=== PATIENT | female | born 1940 | race Caucasian/White ===

== ENCOUNTER 2017-10-30 11:25 | Outpatient (CLI) | payer MEDICARE, BC ==
[2017-10-30 12:08] LABS: Hemoglobin 12.9 g/dL (12.0-16.0); Mean Corpuscular HGB CONC 33.7 g/dL (32.0-36.0); Platelet Count 209 thou/uL (130-400); RBC Distribution Width 13.4 % (11.5-14.5); Red Blood Cell (RBC) Count 4.46 mill/uL (4.20-5.40); White Blood Cell (WBC) Count 5.4 thou/uL (4.8-10.8)
[2017-10-30 12:19] LABS: PTT 27.7 SEC (22.9-36.1); Prothrombin Time 12.9 SEC (12.0-14.7)
[2017-10-30 12:37] LABS: Anion Gap 11 mmol/L (10-20); BUN (Urea Nitrogen) 23 mg/dL (9.8-20.1); Calc. Creatinine Clearance 0 mL/min (70-130); Calcium 9.2 mg/dL (7.8-10.44); Carbon Dioxide 30 mmol/L (23-31); Chloride 101 mmol/L (98-107); Estimated GFR-MDRD 70; Glucose 106 mg/dL (83-110); Potassium 3.8 mmol/L (3.5-5.1); Sodium 138 mmol/L (136-145)
== END 2017-10-30 11:26 | disposition home or self-care (01) ==
LOC: LABBT 11:25
PROVIDERS: ATTEND Surgery
DX: Z01.818 Encounter for other preprocedural examination (principal); M48.02 Spinal stenosis, cervical region; M54.12 Radiculopathy, cervical region
CPT/HCPCS: 80048; 85027; 85610; 85730; 93005; 93010

== ENCOUNTER 2017-11-06 05:36 | Inpatient (IN) | payer MEDICARE, BC ==
[2017-11-06] MEDS ORDERED: Thrombin 5000 UNITS/5 ML VIAL ONE (06:26)
[2017-11-06] MEDS ORDERED: Sodium Chloride 0.9% 10 ML ONE (06:26)
[2017-11-06] MEDS ORDERED: CEFAZOLIN/Water 2 GM/20 ML SYRINGE ONE (07:11)
[2017-11-06] MEDS ORDERED: Albuterol Sulfate HFA (OR ONLY) ONE ×2 (07:15→09:20)
[2017-11-06] MEDS ORDERED: Phenylephrine HCL 10 MG/ML VIAL ONE (07:15)
[2017-11-06] MEDS ORDERED: Fentanyl 100 MCG/2 ML VIAL ONE ×3 (07:28→10:13)
[2017-11-06] MEDS ORDERED: Promethazine HCl 25 MG/ML VIAL IM PRN (09:38)
[2017-11-06] MEDS ORDERED: Promethazine HCl 25 MG/ML VIAL SLOW IVP PRN (09:38)
[2017-11-06] MEDS ORDERED: Ondansetron HCl/PF 4 MG/2 ML Vial IVP PRN (09:38)
[2017-11-06] MEDS ORDERED: HYDROmorphone 2 MG/ML VIAL SLOW IVP PRN (09:38)
[2017-11-06] MEDS ORDERED: Meperidine HCl/PF 25 MG/ML VIAL SLOW IVP PRN (09:38)
[2017-11-06] MEDS ORDERED: Morphine Sulfate 2 MG/ML SYRINGE SLOW IVP PRN (09:38)
[2017-11-06] MEDS ORDERED: Acetaminophen/Codeine 30-300mg Tablet PO PRN (10:16)
[2017-11-06] MEDS ORDERED: Acetaminophen 325 MG TAB PO PRN (10:16)
[2017-11-06] MEDS ORDERED: Fleet Enema 133 ML BOT PR PRN (10:16)
[2017-11-06] MEDS ORDERED: Bisacodyl 10 MG SUPP PR PRN (10:16)
[2017-11-06] MEDS ORDERED: Mag-Al 1200 mg/1200 mg/30 ML UDCUP PO PRN (10:16)
[2017-11-06] MEDS ORDERED: Milk Of Magnesia 30 ML UDCUP PO PRN (10:16)
[2017-11-06] MEDS ORDERED: Morphine 4 MG/ML VIAL ONE ×4 (11:03→16:59)
[2017-11-06] MEDS ORDERED: PROVENTIL INHALER 6.7 G (200 INHALATIONS) ONE (13:25)
[2017-11-06] MEDS ORDERED: Dexamethasone 20 MG/5 ML VIAL ONE (13:25)
[2017-11-06] MEDS ORDERED: Glycopyrrolate 0.2 MG/ML 5 ML SYRINGE ONE (13:25)
[2017-11-06] MEDS ORDERED: PROPOFOL 200 MG/20 ML VIAL ONE (13:25)
[2017-11-06] MEDS ORDERED: Metoclopramide HCl 10 MG/2 ML VIAL ONE (13:25)
[2017-11-06] MEDS ORDERED: ePHEDrine/0.9% NaCl/PF SYRINGE 50 mg/10 ml ONE (13:25)
[2017-11-06] MEDS ORDERED: Lidocaine 1% PF 5 ML VIAL ONE ×2 (13:25)
[2017-11-06] MEDS ORDERED: Ondansetron HCl/PF 4 MG/2 ML Vial ONE (13:25)
--- NOTE | 2017-11-06 14:17 | OP ---
OR: 12 WOUND TYPE: Type 1 wound. SURGEON: Jose Akins M.D. HEALTH UNDERWRITER: Ludwin Guzman PA-C. PREPROCEDURE DIAGNOSES: Cervical stenosis with neck and arm pain. POSTPROCEDURE DIAGNOSES: Cervical stenosis with neck and arm pain. PROCEDURE: 1. Anterior C5-C6, C6-C7 diskectomies for decompression of the neural elements. 2. Preparation of the endplates for interbody spacer placement C5-C6, C6-C7 for arthrodesis with use of local bone autograft obtained from same incision, allograft C5-C6, C6-C7. 3. Anterior cervical plate and screw fixation C5, C6, C7. 4. Use of operative microscope for microdissection. PROCEDURE IN DETAIL: After informed consent was obtained, the patient brought to OR #12. Proper pat ient pause and identification was carried out. She was placed under excellent general endotracheal a nesthesia and positioned supine on the OR table. All appropriate points were padded. The cervical s pine was kept in neutral position. Right anterior oblique peter was drawn out. This region was steri earle cleansed, prepared, and draped. Proper patient pause and identification was carried out. The w ound was then opened with a combination of sharp, monopolar, and blunt dissection. The anterior C5, C6, C7 segments were exposed following procession lateral to the tracheoesophageal bundle and medial to the right carotid sheath. We identified the prevertebral layer of deep cervical fascia and the lo ngus colli muscles and they were swept laterally. A localization film confirmed our area of interest . We then performed a distraction C5-C6 and the microscope was moved in for microdissection. Distra ction at C5-C6 then occurred and diskectomy was performed at C5-C6. The endplates were prepared, an interbody spacer of appropriate dimension was placed following satisfactory decompression of the neur al elements. The spacer was placed, packed with local bone autograft obtained from same incision and allograft for arthrodesis at C5-C6. Distraction was then released and placed at C6-C7, distraction at that segment occurred and diskectomy at C6-C7 was performed with satisfactory neural element decom pression. An interbody spacer of appropriate dimension packed with graft was then placed again at C6 -C7 for arthrodesis. Following preparation of the endplates and were satisfied with our construct. The microscope was removed and anterior cervical plate and screw fixation at C5, C6, C7, then occurre d with final tightening. Copious irrigation occurred throughout as did maximizing hemostasis. The w ound was then closed in anatomic layers following the placement of a drain. The patient then emerged from anesthesia.
[2017-11-06] MEDS ORDERED: Sodium Chloride For Inhalation 0.9% 3 ML NEB ONE (15:32)
[2017-11-06] MEDS: Sodium Chloride 0.9% 1,000 ML IV SCH ×2 (16:04→23:21)
[2017-11-06] MEDS: CEFAZOLIN/Water 2 GM/20 ML SYRINGE SLOW IVP SCH ×2 (17:09→23:21)
[2017-11-06 17:34] VITALS: BMI 34.2
[2017-11-06] MEDS: HYDROcodone/Acetaminophen 7.5/325 mg Tablet PO PRN (20:17)
[2017-11-06] MEDS: Promethazine HCl 25 MG/ML VIAL IM PRN (22:24)
[2017-11-06] MEDS: Colesevelam Hcl [Welchol] 625 MG PO SCH (23:14)
[2017-11-06] MEDS: Carvedilol 6.25 MG TAB PO SCH (23:14)
[2017-11-06] MEDS: Pramipexole Di-HCl 0.25 MG TAB PO SCH (23:15)
[2017-11-06] MEDS: traZODone HCl 150 MG TAB PO SCH (23:16)
[2017-11-07] MEDS: Promethazine HCl 25 MG/ML VIAL IM PRN (09:15)
[2017-11-07] MEDS: HYDROcodone/Acetaminophen 7.5/325 mg Tablet PO PRN ×4 (09:16→21:09)
[2017-11-07] MEDS: Isosorbide Dinitrate 20 MG TAB PO SCH (09:16)
[2017-11-07] MEDS: Carvedilol 6.25 MG TAB PO SCH ×2 (09:16→20:24)
[2017-11-07] MEDS: CEFAZOLIN/Water 2 GM/20 ML SYRINGE SLOW IVP SCH ×2 (09:16→16:06)
[2017-11-07] MEDS: Amlodipine 10 MG TAB PO SCH (09:17)
[2017-11-07] MEDS: Colesevelam Hcl [Welchol] 625 MG PO SCH ×2 (09:17→20:24)
[2017-11-07] MEDS: Lisinopril/Hydrochlorothiazide 20 mg/12.5 mg Tablet PO SCH (09:17)
[2017-11-07] MEDS: Furosemide 20 MG TAB PO SCH (09:17)
[2017-11-07] MEDS: Potassium Chloride 20 MEQ TAB PO SCH (09:17)
--- NOTE | 2017-11-07 10:19 | PRG ---
DATE OF SERVICE: 11/07/2017 Ms. Soriano is postoperative day 1 from C5-C7 ACDF. She is doing well from a neurological standpoint w ith improvement in arm pain and good strength. From a pulmonary standpoint, she is satting well. Sh tiffanie is satting in the mid 90% range on nasal cannula. We will plan to transfer her out of the ICU at t his point. I am very pleased with how she is doing. We will monitor her for another day given her h istory of pulmonary issues.
[2017-11-07] MEDS: Sodium Chloride 0.9% 1,000 ML IV SCH (11:09)
[2017-11-07] MEDS: traZODone HCl 150 MG TAB PO SCH (20:24)
[2017-11-07] MEDS: Pramipexole Di-HCl 0.25 MG TAB PO SCH (20:41)
[2017-11-08] MEDS: CEFAZOLIN/Water 2 GM/20 ML SYRINGE SLOW IVP SCH ×2 (00:27→11:47)
[2017-11-08] MEDS: tiZANidine HCl 4 MG TAB PO PRN ×2 (00:27→06:16)
[2017-11-08] MEDS: HYDROcodone/Acetaminophen 7.5/325 mg Tablet PO PRN ×2 (03:58→11:59)
[2017-11-08] MEDS: Carvedilol 6.25 MG TAB PO SCH (10:00)
[2017-11-08] MEDS: Potassium Chloride 20 MEQ TAB PO SCH (10:00)
[2017-11-08] MEDS: Isosorbide Dinitrate 20 MG TAB PO SCH (10:01)
[2017-11-08] MEDS: Amlodipine 10 MG TAB PO SCH ×2 (10:01→12:26)
[2017-11-08] MEDS: Colesevelam Hcl [Welchol] 625 MG PO SCH (10:03)
[2017-11-08] MEDS: Furosemide 20 MG TAB PO SCH ×2 (10:03→12:26)
[2017-11-08] MEDS: Lisinopril/Hydrochlorothiazide 20 mg/12.5 mg Tablet PO SCH ×2 (10:03→12:26)
[2017-11-08 12:30] VITALS: BP 169/74; TEMP 98.9
== END 2017-11-08 12:45 | disposition home or self-care (01) | DRG 473 ==
LOC: SDC 05:36 → CCU 14:55 → SJJU 11-07 21:51
PROVIDERS: ADMIT Surgery; ATTEND Surgery
PROC: 0RG1071 Fusion of Cervical Vertebral Joint with Autologous Tissue Substitute, Posterior Approach, Posterior Column, Open Approach (ICD-10-PCS; principal; 2017-11-06)
PROC: 0RB30ZZ Excision of Cervical Vertebral Disc, Open Approach (ICD-10-PCS; 2017-11-06)
PROC: 01N10ZZ Release Cervical Nerve, Open Approach (ICD-10-PCS; 2017-11-06)
DX: M48.02 Spinal stenosis, cervical region (principal)
CPT/HCPCS: 76001; 94640; A4216; C1713; C1776; J0131; J1100; J2001; J2270; J2370; J2405; J2550; J2704; J2765; J3010; J3490; J7620

== ENCOUNTER 2017-12-24 14:56 | Outpatient (CLI) | payer MEDICARE, BC ==
--- NOTE | 2017-12-24 15:44 | RAD ---
CERVICAL SPINE THREE VIEWS: History: Follow up exam. Cervical spine surgery. Comparison: None. FINDINGS: Pre dental space is normal. There is no prevertebral soft tissue swelling. Cervical spine vertebral b leonor height is maintained. There is no fracture. There is anterolisthesis of C3 upon C4 (grade I). Cer vical fusion hardware from C5 through C7. No perihardware lucency. On the AP projection, degenerative changes persist. Soft tissue calcification in the right neck noted . There is evidence of a right humeral prosthesis. IMPRESSION: Uncomplicated cervical fusion. POS: [facility]
== END 2017-12-24 14:57 | disposition home or self-care (01) ==
LOC: TBSIIMAG 14:56
PROVIDERS: ATTEND Surgery
DX: M54.12 Radiculopathy, cervical region (principal); M48.02 Spinal stenosis, cervical region; Z98.1 Arthrodesis status
CPT/HCPCS: 72040

== ENCOUNTER 2021-05-18 09:13 | Outpatient (CLI) | payer MEDICARE, BC | END 2021-05-18 09:14 | disposition home or self-care (01) | LOC: TBSIIMAG 09:13 | PROVIDERS: ATTEND Surgery | DX: M51.16 Intervertebral disc disorders with radiculopathy, lumbar region (principal); M47.26 Other spondylosis with radiculopathy, lumbar region; M43.16 Spondylolisthesis, lumbar region; M46.1 Sacroiliitis, not elsewhere classified; M41.9 Scoliosis, unspecified; I70.0 Atherosclerosis of aorta | CPT/HCPCS: 72110; 72148 ==

== ENCOUNTER 2021-06-10 08:00 | Outpatient (CLI) | payer MEDICARE, BC | END 2021-06-10 08:01 | disposition home or self-care (01) | LOC: SCSMRI 08:00 | PROVIDERS: ATTEND Podiatrist Foot & Ankle Surgery | DX: D36.7 Benign neoplasm of other specified sites (principal) | CPT/HCPCS: 82565 ==

== ENCOUNTER 2021-08-30 11:12 | Outpatient (CLI) | payer MEDICARE, BC ==
[2021-08-30 11:54] LABS: Hemoglobin 12.4 g/dL (12.0-15.5); Mean Corpuscular HGB CONC 32.6 g/dL (32.0-36.0); Mean Corpuscular Hemoglobin 27.4 pg (27.0-33.0); Mean Corpuscular Volume 84.1 fl (81.6-98.3); Mean Platelet Volume 9.4 fl (7.4-10.4); Platelet Count 272 10x3/uL (150-450); RBC Distribution Width 14.9 % (11.5-14.5); Red Blood Cell (RBC) Count 4.52 10x6/uL (3.90-5.03); White Blood Cell (WBC) Count 5.4 10x3/uL (3.5-10.5)
[2021-08-30 12:13] LABS: Anion Gap 13 mmol/L (10-20); BUN (Urea Nitrogen) 15 mg/dL (9.8-20.1); Calc. Creatinine Clearance 0 mL/min (70-130); Calcium 9.4 mg/dL (7.8-10.44); Carbon Dioxide 29 mmol/L (23-31); Chloride 101 mmol/L (98-107); Glucose 173 mg/dL (83-110); INR-International Normal Ratio 0.9; PTT 26.8 sec (22.0-33.0); Potassium 4.1 mmol/L (3.5-5.1); Prothrombin Time 10.2 sec (9.5-12.1); Sodium 139 mmol/L (136-145)
[2021-08-31 00:54] LABS: SARS-CoV-2 PCR by NAA Not Detected (NotDetected)
== END 2021-08-30 11:13 | disposition home or self-care (01) ==
LOC: LABBT 11:12
PROVIDERS: ATTEND Surgery
DX: Z01.812 Encounter for preprocedural laboratory examination (principal); M48.061 Spinal stenosis, lumbar region without neurogenic claudication; M54.16 Radiculopathy, lumbar region; Z20.822 Contact with and (suspected) exposure to COVID-19
CPT/HCPCS: 80048; 85027; 85610; 85730; U0003; U0005

== ENCOUNTER 2021-09-01 07:57 | Observation (INO) | payer MEDICARE, BC ==
[2021-08-31 13:47] VITALS: BMI 33.0
[2021-09-01] MEDS ORDERED: Thrombin 5000 UNITS/5 ML VIAL ONE (08:07)
[2021-09-01] MEDS ORDERED: CEFAZOLIN 2 GM VIAL ONE (09:13)
[2021-09-01] MEDS ORDERED: Sodium Chloride 0.9% 0 ML ONE (09:18)
[2021-09-01] MEDS ORDERED: Lidocaine 2% Jelly 5 ML TUBE ONE (10:04)
[2021-09-01] MEDS ORDERED: fentaNYL Citrate/PF 100 MCG/2 ML SYRINGE ONE (10:04)
[2021-09-01] MEDS ORDERED: Lidocaine 1% PF 5 ML VIAL ONE (10:28)
[2021-09-01] MEDS ORDERED: Glycopyrrolate 0.2 MG/ML 5 ML SYRINGE ONE (10:28)
[2021-09-01] MEDS ORDERED: PROPOFOL 200 MG/20 ML VIAL ONE (10:28)
[2021-09-01] MEDS ORDERED: Ondansetron PF 4 MG/2 ML Vial ONE (10:28)
[2021-09-01] MEDS ORDERED: Rocuronium Bromide 10 MG/ML (10ML VIAL) ONE (10:28)
[2021-09-01] MEDS ORDERED: PHENYLEPHRINE-NS 100 MCG/ML 10 ML SYRINGE ONE (10:28)
[2021-09-01] MEDS ORDERED: Dexamethasone 20 MG/5 ML VIAL ONE (10:28)
[2021-09-01] MEDS ORDERED: Phenylephrine 10 MG/ML VIAL ONE (10:48)
[2021-09-01] MEDS ORDERED: Promethazine HCl 25 MG/ML VIAL IM PRN (12:34)
[2021-09-01] MEDS ORDERED: Ondansetron HCl/PF 4 MG/2 ML Vial IVP PRN (12:34)
[2021-09-01] MEDS ORDERED: Promethazine HCl 25 MG/ML VIAL IVPB PRN (12:34)
[2021-09-01] MEDS ORDERED: Fentanyl 100 MCG/2 ML VIAL ONE ×3 (12:36→13:45)
[2021-09-01] MEDS ORDERED: Ondansetron PF 4 MG/2 ML Vial IVP PRN (13:10)
[2021-09-01] MEDS ORDERED: Acetaminophen/Codeine 30-300mg Tablet PO PRN (13:10)
[2021-09-01] MEDS ORDERED: tiZANidine HCl 4 MG TAB PO PRN (13:12)
[2021-09-01] MEDS ORDERED: Promethazine HCl 25 MG/ML VIAL ONE (13:13)
[2021-09-01] MEDS ORDERED: tiZANidine HCl 4 MG TAB ONE (13:52)
[2021-09-01] MEDS: CEFAZOLIN 2 GM in Sodium Chloride 0.9% 100 ML IVPB SCH (13:55)
[2021-09-01] MEDS: Sodium Chloride 0.9% 1,000 ML IV SCH ×2 (13:55→14:59)
[2021-09-01] MEDS ORDERED: CEFAZOLIN 1 GM VIAL ONE ×2 (14:03→14:04)
[2021-09-01] MEDS ORDERED: HYDROcodone/Acetaminophen 5/325 mg Tablet ONE ×2 (14:44→14:45)
[2021-09-01] MEDS: HYDROcodone/Acetaminophen 7.5/325 mg Tablet PO PRN ×2 (14:50→21:16)
[2021-09-01] MEDS ORDERED: Acetaminophen 325 MG TAB ONE ×2 (16:36→16:37)
[2021-09-01] MEDS: Acetaminophen 325 MG TAB PO PRN (16:42)
[2021-09-01] MEDS: Morphine 2 MG/ML VIAL SLOW IVP PRN ×3 (16:50→21:15)
[2021-09-01] MEDS ORDERED: Morphine 2 MG/ML VIAL ONE (16:58)
[2021-09-01] MEDS: DULoxetine 60 MG CAP PO SCH (20:02)
[2021-09-01] MEDS ORDERED: Atorvastatin Calcium 10 MG TAB PO SCH (21:00)
[2021-09-02] MEDS: Morphine 2 MG/ML VIAL SLOW IVP PRN ×2 (00:05→04:51)
[2021-09-02] MEDS: CEFAZOLIN 2 GM in Sodium Chloride 0.9% 100 ML IVPB SCH (02:43)
[2021-09-02] MEDS: HYDROcodone/Acetaminophen 7.5/325 mg Tablet PO PRN (04:49)
[2021-09-02] MEDS ORDERED: metFORMIN 500 MG TAB PO SCH (08:00)
[2021-09-02] MEDS: DULoxetine 60 MG CAP PO SCH (08:24)
[2021-09-02 08:25] VITALS: BP 162/73; TEMP 99
[2021-09-02] MEDS ORDERED: Furosemide 40 MG TAB PO SCH (09:00)
[2021-09-02] MEDS ORDERED: Digoxin 0.125 MG TAB PO SCH (09:00)
[2021-09-02] MEDS: Acetaminophen 325 MG TAB PO PRN (10:01)
== END 2021-09-02 11:19 | disposition home or self-care (01) ==
LOC: SDC 07:57 → SURG A 13:07
PROVIDERS: ADMIT Surgery; ATTEND Surgery
PROC: 01NB0ZZ Release Lumbar Nerve, Open Approach (ICD-10-PCS; principal; 2021-09-01)
DX: M48.061 Spinal stenosis, lumbar region without neurogenic claudication (principal); M54.16 Radiculopathy, lumbar region; J44.9 Chronic obstructive pulmonary disease, unspecified; E11.9 Type 2 diabetes mellitus without complications; Z79.84 Long term (current) use of oral hypoglycemic drugs; Z79.899 Other long term (current) drug therapy; Z88.2 Allergy status to sulfonamides; Z88.5 Allergy status to narcotic agent; Z91.048 Other nonmedicinal substance allergy status
CPT/HCPCS: 63030; 63035; 63047; 76000; 82962 ×2; J2270 ×2; 36416; 96374; 96375; 96376; G0378; J0690; J1100; J2370; J2405; J2550; J2704; J3010; J3370; J3490

== ENCOUNTER 2021-09-06 18:28 | Emergency (ER) | payer MEDICARE, BC ==
[2021-09-06] MEDS ORDERED: Ketorolac Tromethamine 30 MG/ML VIAL ONE (19:07)
[2021-09-06] MEDS ORDERED: Morphine 4 MG/ML VIAL ONE ×2 (19:07→21:40)
== END 2021-09-06 23:18 ==
LOC: ERS 18:28
DX: M54.50 Low back pain, unspecified (principal); I25.10 Atherosclerotic heart disease of native coronary artery without angina pectoris; E11.9 Type 2 diabetes mellitus without complications; E78.5 Hyperlipidemia, unspecified; E78.00 Pure hypercholesterolemia, unspecified; I10 Essential (primary) hypertension; Z79.899 Other long term (current) drug therapy; Z79.84 Long term (current) use of oral hypoglycemic drugs; Z73.6 Limitation of activities due to disability; W19.XXXA Unspecified fall, initial encounter
CPT/HCPCS: 72131; 96374; 96375; 96376; J1885; J2270

== ENCOUNTER 2021-09-18 09:14 | Inpatient (IN) | payer MEDICARE, BC ==
[2021-09-18] MEDS ORDERED: Cyclobenzaprine 10 MG TAB ONE (09:41)
[2021-09-18] MEDS ORDERED: Ketorolac Tromethamine 30 MG/ML VIAL ONE (09:41)
[2021-09-18 13:43] LABS: Bacteria/HPF None Seen HPF (None Seen); Bilirubin Negative (Negative); Blood, Urine Negative (Negative); Clarity Clear (Clear); Glucose, Urine (Dipstick) Normal (Negative); Ketone, Urine Negative (Negative); Leukocyte 25 Leu/uL (Negative); Nitrite Negative (Negative); Protein, Urine (Dipstick) Negative (Neg-Trace); RBC/HPF None Seen HPF (0-3); Specific Gravity, Urine 1.011 (1.002-1.036); Squamous Epithelial 0-3 HPF (0-3); Urobilinogen Normal mg/dL (Less than 2)
[2021-09-18 13:47] LABS: #Eosinphils 0.1 thou/uL (0.0-0.7); #Monocytes 0.7 thou/uL (0.11-0.59); #Neutrophils 8.7 thou/uL (1.40-6.50); %Basophils 0.1 % (0.0-1.0); %Eosinophils 0.8 % (0.0-10.0); %Lymphocytes 17.3 % (21.0-51.0); %Monocytes 5.9 % (0.0-10.0); %Neutrophils 75.8 % (42.0-75.0); Hemoglobin 13.8 g/dL (12.0-16.0); Mean Corpuscular Hemoglobin 28.5 pg (27.0-31.0); Mean Corpuscular Volume 89.1 fL (78.0-98.0); Mean Platelet Volume 7.3 fL (7.4-10.4); Platelet Count 382 thou/uL (130-400); RBC Distribution Width 14.6 % (11.5-14.5); Red Blood Cell (RBC) Count 4.84 mill/uL (4.20-5.40); White Blood Cell (WBC) Count 11.4 thou/uL (4.8-10.8)
[2021-09-18 14:09] LABS: ALT (SGPT) 25 U/L (8-55); AST (SGOT) 30 U/L (5-34); Alkaline Phosphatase 85 U/L (40-110); Anion Gap 18 mmol/L (10-20); BUN (Urea Nitrogen) 18 mg/dL (9.8-20.1); Bilirubin, Total 0.6 mg/dL (0.2-1.2); Calc. Creatinine Clearance 0 mL/min (70-130); Calcium 9.9 mg/dL (7.8-10.44); Carbon Dioxide 24 mmol/L (23-31); Chloride 98 mmol/L (98-107); Glucose 80 mg/dL (83-110); Potassium 4.6 mmol/L (3.5-5.1); Sodium 135 mmol/L (136-145)
[2021-09-18] MEDS ORDERED: cefTRIAXone\\ROCEPHIN 1 GM VIAL ONE (16:03)
[2021-09-18 17:49] VITALS: BMI 31.2
[2021-09-18] MEDS ORDERED: Acetaminophen 325 MG TAB PO PRN (18:00)
[2021-09-18] MEDS ORDERED: Sodium Chloride 0.9% 1,000 ML IV SCH (18:00)
[2021-09-18] MEDS ORDERED: Ondansetron PF 4 MG/2 ML Vial IVP PRN (18:00)
[2021-09-18] MEDS ORDERED: Ondansetron ODT 4 MG TAB SL PRN (18:00)
[2021-09-18] MEDS ORDERED: Bisacodyl 5 MG TAB PO PRN (19:53)
[2021-09-18] MEDS ORDERED: Zolpidem Tartrate 5 MG TAB PO PRN (19:53)
[2021-09-18] MEDS ORDERED: Dextrose 50% Abboject 50 ML SYRINGE SLOW IVP PRN (19:53)
[2021-09-18] MEDS ORDERED: Dextrose 5% in Water 1,000 ML IV PRN (19:53)
[2021-09-18] MEDS ORDERED: HumaLOG 300 UNITS/3 ML VIAL SC PRN ×2 (19:53)
[2021-09-18] MEDS ORDERED: hydrALAZINE 20 MG/ML VIAL SLOW IVP PRN (19:55)
[2021-09-18] MEDS: DULoxetine 60 MG CAP PO SCH (20:23)
[2021-09-18] MEDS: Morphine 2 MG/ML VIAL SLOW IVP PRN (20:24)
[2021-09-18] MEDS: cefTRIAXone\\ROCEPHIN 1 GM in Sodium Chloride 0.9% 100 ML IVPB SCH (20:25)
[2021-09-18] MEDS: Carvedilol 6.25 MG TAB PO SCH (20:26)
[2021-09-18] MEDS: tiZANidine HCl 4 MG TAB PO PRN (20:27)
[2021-09-18] MEDS: traZODone HCl 150 MG TAB PO SCH (20:50)
[2021-09-18] MEDS: Famotidine 40 MG/4 ML VIAL SLOW IVP SCH (20:50)
[2021-09-18] MEDS: Pramipexole Di-HCl 0.25 MG TAB PO SCH (20:51)
[2021-09-18] MEDS ORDERED: Meloxicam 15 MG TAB PO SCH (22:00)
[2021-09-18] MEDS ORDERED: Dexamethasone 10 MG/ML VIAL SLOW IVP SCH (22:00)
[2021-09-19] MEDS: HYDROcodone/Acetaminophen 10/325 mg Tablet PO PRN ×3 (03:01→19:39)
[2021-09-19 07:52] LABS: #Lymphocytes 0.7 thou/uL (1.20-3.40); #Neutrophils 4.2 thou/uL (1.40-6.50); %Basophils 0.1 % (0.0-1.0); %Eosinophils 0.1 % (0.0-10.0); %Monocytes 0.8 % (0.0-10.0); Hemoglobin 12.7 g/dL (12.0-16.0); Mean Corpuscular HGB CONC 32.2 g/dL (32.0-36.0); Mean Corpuscular Hemoglobin 28.5 pg (27.0-31.0); Mean Corpuscular Volume 88.6 fL (78.0-98.0); Mean Platelet Volume 7.3 fL (7.4-10.4); Platelet Count 328 thou/uL (130-400); RBC Distribution Width 14.2 % (11.5-14.5); Red Blood Cell (RBC) Count 4.47 mill/uL (4.20-5.40); White Blood Cell (WBC) Count 4.9 thou/uL (4.8-10.8)
[2021-09-19 08:11] LABS: ALT (SGPT) 26 U/L (8-55); AST (SGOT) 28 U/L (5-34); Albumin 3.8 g/dL (3.4-4.8); Alkaline Phosphatase 78 U/L (40-110); Anion Gap 16 mmol/L (10-20); BUN (Urea Nitrogen) 27 mg/dL (9.8-20.1); Bilirubin, Total 0.3 mg/dL (0.2-1.2); Calc. Creatinine Clearance 54 mL/min (70-130); Calcium 10.1 mg/dL (7.8-10.44); Carbon Dioxide 28 mmol/L (23-31); Chloride 100 mmol/L (98-107); Globulin 3.6 g/dL (2.4-3.5); Glucose 142 mg/dL (83-110); Potassium 4.5 mmol/L (3.5-5.1); Protein, Total 7.4 g/dL (5.8-8.1); Sodium 139 mmol/L (136-145)
[2021-09-19 08:20] LABS: Troponin I Less than 0.010 ng/mL (< 0.028)
[2021-09-19] MEDS: Lisinopril/Hydrochlorothiazide 20 mg/12.5 mg Tablet PO SCH (09:18)
[2021-09-19] MEDS: Digoxin 0.125 MG TAB PO SCH (09:18)
[2021-09-19] MEDS: Atorvastatin Calcium 10 MG TAB PO SCH (09:18)
[2021-09-19] MEDS: Potassium Chloride 20 MEQ TAB PO SCH (09:19)
[2021-09-19] MEDS: Carvedilol 6.25 MG TAB PO SCH ×2 (09:19→20:53)
[2021-09-19] MEDS: DULoxetine 60 MG CAP PO SCH ×2 (09:19→20:54)
[2021-09-19] MEDS: Isosorbide Dinitrate 20 MG TAB PO SCH (09:19)
[2021-09-19] MEDS: metFORMIN 500 MG TAB PO SCH (09:19)
[2021-09-19] MEDS: Amlodipine 10 MG TAB PO SCH (09:19)
[2021-09-19] MEDS: Furosemide 20 MG TAB PO SCH (09:19)
[2021-09-19] MEDS: Lidocaine 5% Patch TD SCH (09:20)
[2021-09-19] MEDS: Enoxaparin Sodium 40 MG/0.4 ML SYRINGE SC SCH (09:20)
[2021-09-19] MEDS: Famotidine 40 MG/4 ML VIAL SLOW IVP SCH (09:20)
[2021-09-19] MEDS: Meloxicam 15 MG TAB PO SCH (09:27)
[2021-09-19] MEDS ORDERED: Ondansetron PF 4 MG/2 ML Vial IVP PRN (10:24)
[2021-09-19] MEDS ORDERED: Lidocaine 5% Patch TD SCH (10:45)
[2021-09-19] MEDS: Mupirocin 2% Ointment 22 GM Tube TOP SCH ×2 (14:27→19:43)
[2021-09-19] MEDS: Morphine 2 MG/ML VIAL SLOW IVP PRN (17:32)
[2021-09-19] MEDS: tiZANidine HCl 4 MG TAB PO PRN (19:39)
[2021-09-19] MEDS: cefTRIAXone\\ROCEPHIN 1 GM in Sodium Chloride 0.9% 100 ML IVPB SCH (20:52)
[2021-09-19] MEDS: traZODone HCl 150 MG TAB PO SCH (20:54)
[2021-09-19] MEDS: Pramipexole Di-HCl 0.25 MG TAB PO SCH (20:54)
[2021-09-19] MEDS: Transdermal Patch Removal TOP SCH (20:55)
[2021-09-19] MEDS ORDERED: Famotidine 40 MG/4 ML VIAL SLOW IVP SCH (21:00)
[2021-09-20] MEDS: Morphine 2 MG/ML VIAL SLOW IVP PRN ×2 (01:29→22:16)
[2021-09-20] MEDS: Lorazepam 0.5 MG TAB PO PRN (04:14)
[2021-09-20] MEDS: Potassium Chloride 20 MEQ TAB PO SCH (08:43)
[2021-09-20] MEDS: Furosemide 20 MG TAB PO SCH (08:43)
[2021-09-20] MEDS: Isosorbide Dinitrate 20 MG TAB PO SCH (08:43)
[2021-09-20] MEDS: Lisinopril/Hydrochlorothiazide 20 mg/12.5 mg Tablet PO SCH (08:43)
[2021-09-20] MEDS: Carvedilol 6.25 MG TAB PO SCH ×2 (08:43→20:56)
[2021-09-20] MEDS: Lidocaine 5% Patch TD SCH (08:44)
[2021-09-20] MEDS: Amlodipine 10 MG TAB PO SCH (08:44)
[2021-09-20] MEDS: Enoxaparin Sodium 40 MG/0.4 ML SYRINGE SC SCH (08:44)
[2021-09-20] MEDS: DULoxetine 60 MG CAP PO SCH ×2 (08:44→20:56)
[2021-09-20] MEDS: Atorvastatin Calcium 10 MG TAB PO SCH (08:44)
[2021-09-20] MEDS: Digoxin 0.125 MG TAB PO SCH (08:44)
[2021-09-20] MEDS: metFORMIN 500 MG TAB PO SCH (08:44)
[2021-09-20] MEDS: Meloxicam 15 MG TAB PO SCH (08:45)
[2021-09-20] MEDS: Mupirocin 2% Ointment 22 GM Tube TOP SCH ×3 (08:45→20:52)
[2021-09-20] MEDS ORDERED: tiZANidine HCl 4 MG TAB PO SCH (11:45)
[2021-09-20] MEDS ORDERED: Gabapentin 300 MG CAP PO SCH (11:45)
[2021-09-20] MEDS: HYDROcodone/Acetaminophen 10/325 mg Tablet PO PRN (12:24)
[2021-09-20] MEDS: cefTRIAXone\\ROCEPHIN 1 GM in Sodium Chloride 0.9% 100 ML IVPB SCH (20:55)
[2021-09-20] MEDS: traZODone HCl 150 MG TAB PO SCH (20:55)
[2021-09-20] MEDS: Pramipexole Di-HCl 1 MG TAB PO SCH (20:56)
[2021-09-20] MEDS: tiZANidine HCl 4 MG TAB PO SCH (20:56)
[2021-09-20] MEDS: Gabapentin 300 MG CAP PO SCH (20:56)
[2021-09-20] MEDS: Transdermal Patch Removal TOP SCH (20:57)
[2021-09-20] MEDS ORDERED: Transdermal Patch Removal TOP SCH (21:00)
[2021-09-21] MEDS: Morphine 2 MG/ML VIAL SLOW IVP PRN ×2 (05:54→22:10)
[2021-09-21] MEDS: metFORMIN 500 MG TAB PO SCH (08:08)
[2021-09-21] MEDS: Amlodipine 10 MG TAB PO SCH (08:08)
[2021-09-21] MEDS: Meloxicam 15 MG TAB PO SCH (08:08)
[2021-09-21] MEDS: DULoxetine 60 MG CAP PO SCH ×2 (08:08→20:28)
[2021-09-21] MEDS: Lisinopril/Hydrochlorothiazide 20 mg/12.5 mg Tablet PO SCH (08:09)
[2021-09-21] MEDS: Carvedilol 6.25 MG TAB PO SCH ×2 (08:09→20:27)
[2021-09-21] MEDS: tiZANidine HCl 4 MG TAB PO SCH ×2 (08:09→20:28)
[2021-09-21] MEDS: Isosorbide Dinitrate 20 MG TAB PO SCH (08:09)
[2021-09-21] MEDS: Gabapentin 300 MG CAP PO SCH ×2 (08:09→20:27)
[2021-09-21] MEDS: Potassium Chloride 20 MEQ TAB PO SCH (08:09)
[2021-09-21] MEDS: Furosemide 20 MG TAB PO SCH (08:09)
[2021-09-21] MEDS: Digoxin 0.125 MG TAB PO SCH (08:09)
[2021-09-21] MEDS: Atorvastatin Calcium 10 MG TAB PO SCH (08:09)
[2021-09-21] MEDS: Mupirocin 2% Ointment 22 GM Tube TOP SCH ×3 (08:10→20:28)
[2021-09-21] MEDS: Lidocaine 5% Patch TD SCH (08:10)
[2021-09-21] MEDS: Enoxaparin Sodium 40 MG/0.4 ML SYRINGE SC SCH (08:11)
[2021-09-21] MEDS ORDERED: Polyethylene Glycol 3350 17 GM Packet PO PRN (15:08)
[2021-09-21] MEDS: HYDROcodone/Acetaminophen 10/325 mg Tablet PO PRN ×2 (15:23→20:47)
[2021-09-21] MEDS: Pramipexole Di-HCl 1 MG TAB PO SCH (20:27)
[2021-09-21] MEDS: Senokot S 8.6-50 MG TAB PO SCH (20:27)
[2021-09-21] MEDS: cefTRIAXone\\ROCEPHIN 1 GM in Sodium Chloride 0.9% 100 ML IVPB SCH (20:28)
[2021-09-21] MEDS: Transdermal Patch Removal TOP SCH (20:28)
[2021-09-21] MEDS: traZODone HCl 150 MG TAB PO SCH (20:28)
[2021-09-21] MEDS: Lorazepam 0.5 MG TAB PO PRN (22:10)
[2021-09-22] MEDS: HYDROcodone/Acetaminophen 10/325 mg Tablet PO PRN (06:02)
[2021-09-22] MEDS: Lidocaine 5% Patch TD SCH (07:54)
[2021-09-22] MEDS: Furosemide 20 MG TAB PO SCH (07:54)
[2021-09-22] MEDS: Atorvastatin Calcium 10 MG TAB PO SCH (07:54)
[2021-09-22] MEDS: Potassium Chloride 20 MEQ TAB PO SCH (07:54)
[2021-09-22] MEDS: Digoxin 0.125 MG TAB PO SCH (07:55)
[2021-09-22] MEDS: Lisinopril/Hydrochlorothiazide 20 mg/12.5 mg Tablet PO SCH (07:55)
[2021-09-22] MEDS: tiZANidine HCl 4 MG TAB PO SCH (07:55)
[2021-09-22] MEDS: Gabapentin 300 MG CAP PO SCH (07:55)
[2021-09-22] MEDS: Amlodipine 10 MG TAB PO SCH (07:55)
[2021-09-22] MEDS: DULoxetine 60 MG CAP PO SCH (07:55)
[2021-09-22] MEDS: Enoxaparin Sodium 40 MG/0.4 ML SYRINGE SC SCH (07:56)
[2021-09-22] MEDS: metFORMIN 500 MG TAB PO SCH (07:56)
[2021-09-22] MEDS: Isosorbide Dinitrate 20 MG TAB PO SCH (07:56)
[2021-09-22] MEDS: Meloxicam 15 MG TAB PO SCH (07:56)
[2021-09-22] MEDS: Mupirocin 2% Ointment 22 GM Tube TOP SCH (07:56)
[2021-09-22] MEDS: Senokot S 8.6-50 MG TAB PO SCH (07:56)
[2021-09-22] MEDS: Carvedilol 6.25 MG TAB PO SCH (08:03)
[2021-09-22 08:07] VITALS: BP 136/74; TEMP 98.3
== END 2021-09-22 12:10 | disposition home health service (06) | DRG 552 ==
LOC: ERS 09:14 → T4-B 16:21 → OBSVTOIN 09-19 16:16
PROVIDERS: ADMIT Family Medicine; ATTEND Family Medicine
DX: M54.16 Radiculopathy, lumbar region (principal); N39.0 Urinary tract infection, site not specified; Z20.822 Contact with and (suspected) exposure to COVID-19; M19.012 Primary osteoarthritis, left shoulder; E11.9 Type 2 diabetes mellitus without complications; E78.5 Hyperlipidemia, unspecified; I10 Essential (primary) hypertension; I25.10 Atherosclerotic heart disease of native coronary artery without angina pectoris; B96.1 Klebsiella pneumoniae [K. pneumoniae] as the cause of diseases classified elsewhere; J44.9 Chronic obstructive pulmonary disease, unspecified; S01.302A Unspecified open wound of left ear, initial encounter; Z98.890 Other specified postprocedural states; Z88.6 Allergy status to analgesic agent; Z88.2 Allergy status to sulfonamides; Z91.09 Other allergy status, other than to drugs and biological substances; Z79.899 Other long term (current) drug therapy; Z79.84 Long term (current) use of oral hypoglycemic drugs
CPT/HCPCS: 36415; 36416; 71045; 80053; 81003; 81015; 84443; 84484; 85025; 85652; 87040; 87077; 87086; 87186; 90471; 90732; 93970; 96372; 96374; G0009; J0696; J1100; J1650; J1885; J2270; J2405; J3490; U0003; U0005

== ENCOUNTER 2021-11-19 16:18 | Inpatient (IN) | payer MEDICARE, BC ==
[2021-11-19] MEDS ORDERED: Ketorolac Tromethamine 30 MG/ML VIAL ONE (16:44)
[2021-11-19] MEDS ORDERED: Dexamethasone 10 MG/ML VIAL ONE (16:44)
[2021-11-19 17:09] LABS: #Eosinphils 0.1 thou/uL (0.0-0.7); #Lymphocytes 2.1 thou/uL (1.20-3.40); #Monocytes 0.9 thou/uL (0.11-0.59); #Neutrophils 6.7 thou/uL (1.40-6.50); %Basophils 0.2 % (0.0-1.0); %Eosinophils 1.3 % (0.0-10.0); %Lymphocytes 21.1 % (21.0-51.0); %Monocytes 9.3 % (0.0-10.0); %Neutrophils 68.1 % (42.0-75.0); Hemoglobin 11.7 g/dL (12.0-16.0); Mean Corpuscular HGB CONC 33.3 g/dL (32.0-36.0); Mean Corpuscular Hemoglobin 28.9 pg (27.0-31.0); Mean Corpuscular Volume 86.7 fL (78.0-98.0); Mean Platelet Volume 8.4 fL (7.4-10.4); Platelet Count 195 thou/uL (130-400); RBC Distribution Width 14.5 % (11.5-14.5); Red Blood Cell (RBC) Count 4.07 mill/uL (4.20-5.40); White Blood Cell (WBC) Count 9.8 thou/uL (4.8-10.8)
[2021-11-19 17:58] LABS: ALT (SGPT) 20 U/L (8-55); AST (SGOT) 21 U/L (5-34); Albumin 3.7 g/dL (3.4-4.8); Alkaline Phosphatase 115 U/L (40-110); Anion Gap 16 mmol/L (10-20); BUN (Urea Nitrogen) 18 mg/dL (9.8-20.1); Bilirubin, Total 0.3 mg/dL (0.2-1.2); Calc. Creatinine Clearance 0 mL/min (70-130); Calcium 9.5 mg/dL (7.8-10.44); Carbon Dioxide 25 mmol/L (23-31); Chloride 102 mmol/L (98-107); Estimated GFR 78; Globulin 2.9 g/dL (2.4-3.5); Glucose 179 mg/dL (83-110); Potassium 4.4 mmol/L (3.5-5.1); Protein, Total 6.6 g/dL (5.8-8.1); Sodium 139 mmol/L (136-145)
[2021-11-19 19:31] LABS: Bilirubin Negative (Negative); Blood, Urine Negative (Negative); Clarity Clear (Clear); Glucose, Urine (Dipstick) Normal (Negative); Ketone, Urine Negative (Negative); Leukocyte 500 Leu/uL (Negative); Mucous/LPF Rare LPF (<2+); Nitrite Negative (Negative); Protein, Urine (Dipstick) 30 mg/dL (Neg-Trace); Renal Epithelial 0-3 HPF (None Seen); Specific Gravity, Urine 1.024 (1.002-1.036); Squamous Epithelial 0-3 HPF (0-3); Urobilinogen Normal mg/dL (Less than 2); WBC/HPF 21-50 HPF (0-3); pH, Urine 6.5 (5.0-9.0)
[2021-11-19 19:37] LABS: Bacteria/HPF Rare-Few HPF (None Seen)
[2021-11-19] MEDS ORDERED: Morphine 4 MG/ML VIAL ONE (22:19)
[2021-11-19] MEDS ORDERED: HumaLOG 300 UNITS/3 ML VIAL SC PRN (22:55)
[2021-11-19] MEDS ORDERED: Dextrose 5% in Water 1,000 ML IV PRN (22:55)
[2021-11-19] MEDS ORDERED: Dextrose 50% Abboject 50 ML SYRINGE SLOW IVP PRN (22:55)
[2021-11-20 00:14] VITALS: BMI 33.0
[2021-11-20] MEDS: cefTRIAXone\\ROCEPHIN 1 GM in Sodium Chloride 0.9% 100 ML IVPB SCH ×2 (00:50→22:00)
[2021-11-20] MEDS: HYDROcodone/Acetaminophen 7.5/325 mg Tablet PO PRN ×2 (02:22→10:48)
[2021-11-20] MEDS: HumaLOG 300 UNITS/3 ML VIAL SC PRN ×2 (06:03→12:14)
[2021-11-20] MEDS: Acetaminophen 325 MG TAB PO PRN (06:03)
[2021-11-20] MEDS ORDERED: Morphine 4 MG/ML VIAL SLOW IVP SCH (06:30)
[2021-11-20 06:36] LABS: #Lymphocytes 1.1 thou/uL (1.20-3.40); #Monocytes 0.3 thou/uL (0.11-0.59); #Neutrophils 7.6 thou/uL (1.40-6.50); %Eosinophils 0.1 % (0.0-10.0); %Lymphocytes 12.5 % (21.0-51.0); %Monocytes 3.5 % (0.0-10.0); %Neutrophils 83.9 % (42.0-75.0); Hemoglobin 11.5 g/dL (12.0-16.0); Mean Corpuscular HGB CONC 32.8 g/dL (32.0-36.0); Mean Corpuscular Hemoglobin 28.8 pg (27.0-31.0); Mean Corpuscular Volume 87.6 fL (78.0-98.0); Mean Platelet Volume 8.4 fL (7.4-10.4); Platelet Count 193 thou/uL (130-400); RBC Distribution Width 14.7 % (11.5-14.5); Red Blood Cell (RBC) Count 3.99 mill/uL (4.20-5.40); White Blood Cell (WBC) Count 9.1 thou/uL (4.8-10.8)
[2021-11-20 06:52] LABS: Anion Gap 13 mmol/L (10-20); BUN (Urea Nitrogen) 23 mg/dL (9.8-20.1); Calc. Creatinine Clearance 73 mL/min (70-130); Calcium 9.8 mg/dL (7.8-10.44); Carbon Dioxide 27 mmol/L (23-31); Chloride 100 mmol/L (98-107); Estimated GFR 80; Glucose 147 mg/dL (83-110); Potassium 4.2 mmol/L (3.5-5.1); Sodium 136 mmol/L (136-145)
[2021-11-20] MEDS: Carvedilol 6.25 MG TAB PO SCH ×2 (08:38→21:52)
[2021-11-20] MEDS: Digoxin 0.125 MG TAB PO SCH (08:39)
[2021-11-20] MEDS: Lisinopril/Hydrochlorothiazide 20 mg/12.5 mg Tablet PO SCH (08:39)
[2021-11-20] MEDS: Meloxicam 7.5 MG TAB PO SCH (08:43)
[2021-11-20] MEDS: Amlodipine 10 MG TAB PO SCH (08:45)
[2021-11-20] MEDS: Isosorbide Dinitrate 20 MG TAB PO SCH (08:45)
[2021-11-20] MEDS: Atorvastatin Calcium 10 MG TAB PO SCH (08:45)
[2021-11-20] MEDS: Gabapentin 300 MG CAP PO SCH ×2 (08:46→21:52)
[2021-11-20] MEDS: DULoxetine 60 MG CAP PO SCH ×2 (08:47→21:52)
[2021-11-20] MEDS ORDERED: Enoxaparin Sodium 40 MG/0.4 ML SYRINGE SC SCH (09:00)
[2021-11-20] MEDS ORDERED: Meloxicam 7.5 MG TAB PO SCH (09:00)
[2021-11-20] MEDS ORDERED: metFORMIN 500 MG TAB PO SCH (09:00)
[2021-11-20] MEDS: tiZANidine HCl 4 MG TAB PO PRN (10:49)
[2021-11-20] MEDS ORDERED: Lorazepam 0.5 MG TAB PO SCH ×2 (12:45→13:00)
[2021-11-20] MEDS ORDERED: Lorazepam 2 MG/ML VIAL SLOW IVP SCH (12:45)
[2021-11-20] MEDS ORDERED: Magnevist 469MG/ML 20 ML VIAL ONE (14:18)
[2021-11-20] MEDS: metFORMIN 500 MG TAB PO SCH (18:01)
[2021-11-20] MEDS: Pramipexole Di-HCl 0.25 MG TAB PO SCH (21:52)
[2021-11-20] MEDS: ALPRAZolam 0.25 MG TAB PO PRN (22:10)
[2021-11-20] MEDS: Ondansetron PF 4 MG/2 ML Vial IVP PRN (22:10)
[2021-11-21] MEDS: HYDROcodone/Acetaminophen 7.5/325 mg Tablet PO PRN (07:16)
[2021-11-21] MEDS: Meloxicam 7.5 MG TAB PO SCH (09:43)
[2021-11-21] MEDS: metFORMIN 500 MG TAB PO SCH ×2 (09:43→18:13)
[2021-11-21] MEDS: Digoxin 0.125 MG TAB PO SCH (09:43)
[2021-11-21] MEDS: Lisinopril/Hydrochlorothiazide 20 mg/12.5 mg Tablet PO SCH (09:43)
[2021-11-21] MEDS: Amlodipine 10 MG TAB PO SCH (09:44)
[2021-11-21] MEDS: Gabapentin 300 MG CAP PO SCH ×2 (09:44→21:40)
[2021-11-21] MEDS: Carvedilol 6.25 MG TAB PO SCH ×2 (09:44→21:40)
[2021-11-21] MEDS: DULoxetine 60 MG CAP PO SCH ×2 (09:44→21:40)
[2021-11-21] MEDS: Atorvastatin Calcium 10 MG TAB PO SCH (09:44)
[2021-11-21] MEDS: Isosorbide Dinitrate 20 MG TAB PO SCH (09:44)
[2021-11-21] MEDS: Dexamethasone 4 mg/ml Vial SLOW IVP SCH ×3 (09:45→23:08)
[2021-11-21] MEDS: Morphine 2 MG/ML VIAL SLOW IVP PRN ×3 (12:36→23:12)
[2021-11-21] MEDS: Pramipexole Di-HCl 0.25 MG TAB PO SCH (21:39)
[2021-11-21] MEDS: cefTRIAXone\\ROCEPHIN 1 GM in Sodium Chloride 0.9% 100 ML IVPB SCH (22:02)
[2021-11-21] MEDS ORDERED: traZODone HCl 150 MG TAB PO SCH (23:15)
[2021-11-22] MEDS: Morphine 2 MG/ML VIAL SLOW IVP PRN ×4 (02:46→22:14)
[2021-11-22] MEDS: Lisinopril/Hydrochlorothiazide 20 mg/12.5 mg Tablet PO SCH (09:09)
[2021-11-22] MEDS: Digoxin 0.125 MG TAB PO SCH (09:09)
[2021-11-22] MEDS: Atorvastatin Calcium 10 MG TAB PO SCH (09:09)
[2021-11-22] MEDS: DULoxetine 60 MG CAP PO SCH ×2 (09:09→20:52)
[2021-11-22] MEDS: metFORMIN 500 MG TAB PO SCH ×2 (09:09→18:25)
[2021-11-22] MEDS: Carvedilol 6.25 MG TAB PO SCH ×2 (09:10→20:53)
[2021-11-22] MEDS: Isosorbide Dinitrate 20 MG TAB PO SCH (09:10)
[2021-11-22] MEDS: Amlodipine 10 MG TAB PO SCH (09:10)
[2021-11-22] MEDS: Gabapentin 300 MG CAP PO SCH ×2 (09:10→20:52)
[2021-11-22] MEDS: HYDROcodone/Acetaminophen 7.5/325 mg Tablet PO PRN (09:11)
[2021-11-22] MEDS: ALPRAZolam 0.25 MG TAB PO PRN (18:29)
[2021-11-22] MEDS: Pramipexole Di-HCl 0.25 MG TAB PO SCH (20:53)
[2021-11-22] MEDS: traZODone HCl 150 MG TAB PO SCH (20:53)
[2021-11-22] MEDS: cefTRIAXone\\ROCEPHIN 1 GM in Sodium Chloride 0.9% 100 ML IVPB SCH (22:15)
[2021-11-22] MEDS: Ondansetron PF 4 MG/2 ML Vial IVP PRN (22:15)
[2021-11-23] MEDS: Morphine 2 MG/ML VIAL SLOW IVP PRN ×4 (02:18→21:52)
[2021-11-23] MEDS: Carvedilol 6.25 MG TAB PO SCH ×2 (04:24→20:15)
[2021-11-23] MEDS: ALPRAZolam 0.25 MG TAB PO PRN (04:24)
[2021-11-23] MEDS: Ondansetron PF 4 MG/2 ML Vial IVP PRN (04:24)
[2021-11-23] MEDS ORDERED: CEFAZOLIN 2 GM in Sodium Chloride 0.9% 100 ML IVPB SCH (09:00)
[2021-11-23] MEDS: Atorvastatin Calcium 10 MG TAB PO SCH (09:26)
[2021-11-23] MEDS: Amlodipine 10 MG TAB PO SCH (09:26)
[2021-11-23] MEDS: DULoxetine 60 MG CAP PO SCH ×2 (09:26→20:14)
[2021-11-23] MEDS: metFORMIN 500 MG TAB PO SCH ×2 (09:26→15:53)
[2021-11-23] MEDS: Digoxin 0.125 MG TAB PO SCH (09:26)
[2021-11-23] MEDS ORDERED: Sodium Chloride 0.9% 100 ML ONE (09:27)
[2021-11-23] MEDS ORDERED: CEFAZOLIN 2 GM VIAL ONE (09:27)
[2021-11-23] MEDS ORDERED: Phenylephrine 10 MG/ML VIAL ONE (09:34)
[2021-11-23] MEDS ORDERED: Famotidine/PF 20 mg/2ml Vial ONE (09:39)
[2021-11-23] MEDS ORDERED: Albuterol Sulfate HFA (OR ONLY) ONE (09:39)
[2021-11-23] MEDS ORDERED: fentaNYL Citrate/PF 100 MCG/2 ML SYRINGE ONE (09:42)
[2021-11-23] MEDS ORDERED: Dexamethasone 20 MG/5 ML VIAL ONE (09:45)
[2021-11-23] MEDS ORDERED: Glycopyrrolate 0.2 MG/ML 5 ML SYRINGE ONE (09:45)
[2021-11-23] MEDS ORDERED: PROPOFOL 200 MG/20 ML VIAL ONE (09:45)
[2021-11-23] MEDS ORDERED: Rocuronium Bromide 10 MG/ML (10ML VIAL) ONE (09:45)
[2021-11-23] MEDS ORDERED: Ondansetron PF 4 MG/2 ML Vial ONE (09:45)
[2021-11-23] MEDS ORDERED: ePHEDrine 50 MG/ML VIAL ONE (09:45)
[2021-11-23] MEDS ORDERED: Lidocaine 1% PF 5 ML VIAL ONE (09:45)
[2021-11-23] MEDS: Gabapentin 300 MG CAP PO SCH ×2 (10:16→20:15)
[2021-11-23] MEDS: Isosorbide Dinitrate 20 MG TAB PO SCH (10:16)
[2021-11-23] MEDS: Lisinopril/Hydrochlorothiazide 20 mg/12.5 mg Tablet PO SCH (10:16)
[2021-11-23] MEDS ORDERED: SUGAMMADEX SODIUM 200 MG/2 ML VIAL ONE (10:32)
[2021-11-23] MEDS ORDERED: Promethazine HCl 25 MG/ML VIAL IVPB PRN (10:38)
[2021-11-23] MEDS ORDERED: PACU-Morphine 4MG/ML VIAL SLOW IVP PRN (10:38)
[2021-11-23] MEDS ORDERED: Fentanyl 100 MCG/2 ML VIAL ONE ×2 (11:18→11:47)
[2021-11-23] MEDS ORDERED: Morphine 2 MG/ML VIAL SLOW IVP PRN (12:20)
[2021-11-23] MEDS: HYDROcodone/Acetaminophen 7.5/325 mg Tablet PO PRN ×2 (15:53→20:14)
[2021-11-23] MEDS ORDERED: Morphine 2 MG/ML VIAL SLOW IVP SCH (16:15)
[2021-11-23] MEDS: Lidocaine 5% Patch TD SCH (17:40)
[2021-11-23] MEDS: CEFAZOLIN 2 GM in Sodium Chloride 0.9% 100 ML IVPB SCH (17:41)
[2021-11-23] MEDS: Pramipexole Di-HCl 0.25 MG TAB PO SCH (20:14)
[2021-11-23] MEDS: traZODone HCl 150 MG TAB PO SCH (20:14)
[2021-11-23] MEDS: tiZANidine HCl 4 MG TAB PO PRN (21:52)
[2021-11-24] MEDS: Morphine 2 MG/ML VIAL SLOW IVP PRN ×2 (01:57→05:33)
[2021-11-24] MEDS: CEFAZOLIN 2 GM in Sodium Chloride 0.9% 100 ML IVPB SCH (01:58)
[2021-11-24] MEDS: Acetaminophen 325 MG TAB PO PRN (04:26)
[2021-11-24] MEDS: ALPRAZolam 0.25 MG TAB PO PRN (04:26)
[2021-11-24] MEDS: Lisinopril/Hydrochlorothiazide 20 mg/12.5 mg Tablet PO SCH (07:56)
[2021-11-24] MEDS: tiZANidine HCl 4 MG TAB PO PRN (07:57)
[2021-11-24] MEDS: DULoxetine 60 MG CAP PO SCH (07:57)
[2021-11-24] MEDS: Digoxin 0.125 MG TAB PO SCH (07:57)
[2021-11-24] MEDS: metFORMIN 500 MG TAB PO SCH (07:57)
[2021-11-24] MEDS: Carvedilol 6.25 MG TAB PO SCH (07:57)
[2021-11-24] MEDS: Gabapentin 300 MG CAP PO SCH (07:58)
[2021-11-24] MEDS: Isosorbide Dinitrate 20 MG TAB PO SCH (07:58)
[2021-11-24] MEDS: Amlodipine 10 MG TAB PO SCH (07:58)
[2021-11-24] MEDS: Atorvastatin Calcium 10 MG TAB PO SCH (07:58)
[2021-11-24] MEDS: HYDROcodone/Acetaminophen 7.5/325 mg Tablet PO PRN ×2 (07:58→13:36)
[2021-11-24 09:01] VITALS: TEMP 98.4
[2021-11-24 12:28] VITALS: BP 103/80
[2021-11-24] MEDS: Lidocaine 5% Patch TD SCH (15:57)
== END 2021-11-24 16:38 | DRG 460 ==
LOC: ERS 16:18 → T4-B 22:31 → OBSVTOIN 11-21 15:12
PROVIDERS: ADMIT Internal Medicine; ATTEND Internal Medicine
PROC: 0SG00K1 Fusion of Lumbar Vertebral Joint with Nonautologous Tissue Substitute, Posterior Approach, Posterior Column, Open Approach (ICD-10-PCS; principal; 2021-11-23)
PROC: 01NB0ZZ Release Lumbar Nerve, Open Approach (ICD-10-PCS; 2021-11-23)
DX: M48.061 Spinal stenosis, lumbar region without neurogenic claudication (principal); N39.0 Urinary tract infection, site not specified; Z20.822 Contact with and (suspected) exposure to COVID-19; I25.10 Atherosclerotic heart disease of native coronary artery without angina pectoris; E78.5 Hyperlipidemia, unspecified; J44.9 Chronic obstructive pulmonary disease, unspecified; G89.29 Other chronic pain; F41.9 Anxiety disorder, unspecified; B96.1 Klebsiella pneumoniae [K. pneumoniae] as the cause of diseases classified elsewhere; B96.4 Proteus (mirabilis) (morganii) as the cause of diseases classified elsewhere; M51.26 Other intervertebral disc displacement, lumbar region; M54.16 Radiculopathy, lumbar region; Z28.21 Immunization not carried out because of patient refusal; Z90.49 Acquired absence of other specified parts of digestive tract; Z87.891 Personal history of nicotine dependence; Z86.79 Personal history of other diseases of the circulatory system; Z90.710 Acquired absence of both cervix and uterus
CPT/HCPCS: 36415; 36416; 72131; 72158; 72170; 76000; 80048; 80053; 81003; 81015; 85025; 87086; 96374; 96375; A9579; C1713; J0690; J0696; J1100; J1650; J1815; J1885; J2270; J2370; J2405; J2704; J3010; J3370; J3490; S0028; U0003; U0005

== ENCOUNTER 2021-12-06 14:14 | Outpatient (CLI) | payer MEDICARE, BC | END 2021-12-06 14:15 | disposition home or self-care (01) | LOC: TBSIIMAG 14:14 | PROVIDERS: ATTEND Surgery | DX: M48.062 Spinal stenosis, lumbar region with neurogenic claudication (principal); M47.26 Other spondylosis with radiculopathy, lumbar region; M54.50 Low back pain, unspecified; M47.817 Spondylosis without myelopathy or radiculopathy, lumbosacral region; Z98.890 Other specified postprocedural states | CPT/HCPCS: 72100 ==

== ENCOUNTER 2022-01-31 13:47 | Outpatient (CLI) | payer MEDICARE, BC | END 2022-01-31 13:48 | disposition home or self-care (01) | LOC: TBSIIMAG 13:47 | PROVIDERS: ATTEND Neurological Surgery | DX: M48.061 Spinal stenosis, lumbar region without neurogenic claudication (principal); M47.816 Spondylosis without myelopathy or radiculopathy, lumbar region; M51.36 Other intervertebral disc degeneration, lumbar region; M51.35 Other intervertebral disc degeneration, thoracolumbar region; M43.16 Spondylolisthesis, lumbar region; M41.9 Scoliosis, unspecified | CPT/HCPCS: 72100 ==

== ENCOUNTER 2023-03-01 11:52 | Outpatient (CLI) | payer MEDICARE, BC | END 2023-03-01 11:53 | disposition home or self-care (01) | LOC: RAD 11:52 | PROVIDERS: ATTEND Internal Medicine Critical Care Medicine | DX: R06.00 Dyspnea, unspecified (principal); I51.7 Cardiomegaly; J84.10 Pulmonary fibrosis, unspecified | CPT/HCPCS: 71046 ==